=== PATIENT | female | born 1955 | race Caucasian/White ===

== ENCOUNTER → 2019-11-07 | Outpatient (CLI) | payer MEDICARE | END | disposition home or self-care (01) | LOC: STAR 11:08 | PROVIDERS: ATTEND Anesthesiology | DX: Z01.818 Encounter for other preprocedural examination (principal); Z11.59 Encounter for screening for other viral diseases | CPT/HCPCS: 36415; 87635 ==

== ENCOUNTER 2019-11-11 09:21 | Day surgery (SDC) | payer MEDICARE, OTHER ==
[~2019-11-11] VITALS: Ht 162.6 cm; Wt 64.2 kg
[2019-11-11] MEDS ORDERED: LACTATED RINGERS 1,000 ML IV SCH (09:58)
[2019-11-11] MEDS ORDERED: CHLORHEXIDINE 15 ML UDC MM ONE (10:00)
[2019-11-11] MEDS ORDERED: ASPI-496 PO (10:02)
[2019-11-11] MEDS ORDERED: METOPROLOL PO (10:02)
[2019-11-11] MEDS ORDERED: LISI-170 PO (10:02)
[2019-11-11] MEDS ORDERED: METF500T17 PO (10:02)
[2019-11-11 10:04] VITALS: BP 154/82
[2019-11-11] MEDS ORDERED: MIDAZOLAM 1 MG/ML, 2ML ONE (10:10)
[2019-11-11] MEDS ORDERED: CHLORHEXIDINE 15 ML UDC ONE (10:11)
[2019-11-11] MEDS ORDERED: PROPOFOL 50 ML ONE ×2 (10:12→11:35)
[2019-11-11] MEDS ORDERED: PROMETHAZINE 25 MG/ML, 1ML IVPush PRN (10:30)
[2019-11-11] MEDS ORDERED: FENTANYL PF 100 MCG/2ML IV PRN (10:30)
[2019-11-11] MEDS ORDERED: ONDANSETRON 2MG/ML, 2ML IVPush PRN (10:30)
[2019-11-11 10:36] LABS: ALANINE AMINOTRANSFERASE 18 U/L (12-78); ALBUMIN 4.4 g/dL (3.4-5.0); ANION GAP 6 mmol/L (5-15); CALCIUM 9.5 mg/dL (8.5-10.1); CHLORIDE 108 mmol/L (98-107); CREATININE 0.77 mg/dL (0.55-1.02)
[2019-11-11 10:38] LABS: ALKALINE PHOSPHATASE 82 U/L (45-117); BILIRUBIN,TOTAL 0.6 mg/dL (0.2-1.0); TOTAL PROTEIN 7.7 g/dL (6.4-8.2)
== END 2019-11-11 14:35 | disposition home or self-care (01) ==
LOC: OUT 09:21
PROVIDERS: ATTEND Internal Medicine Geriatric Medicine
DX: R19.5 Other fecal abnormalities (principal); D12.3 Benign neoplasm of transverse colon; K59.00 Constipation, unspecified; E11.9 Type 2 diabetes mellitus without complications; I10 Essential (primary) hypertension; F17.210 Nicotine dependence, cigarettes, uncomplicated; Z98.890 Other specified postprocedural states; Z72.89 Other problems related to lifestyle; Z82.49 Family history of ischemic heart disease and other diseases of the circulatory system; Z83.3 Family history of diabetes mellitus
CPT/HCPCS: 45381; 45385; 80053; 82962; 88305; 93005; A4648; J2250; J2704; J7120